=== PATIENT | female | born 1955 | race African-American/Black ===

== ENCOUNTER 2016-03-30 16:27 | Observation (INO) | payer OTHER ==
[2016-03-30] VITALS (8 sets, daily range): BP systolic 113–138; BP diastolic 73–86; PULSE 52–92; RESP 12–18; TEMP 97.7–98.7; O2SAT 96–98
[~2016-03-30] VITALS: Ht 157.5 cm; Wt 85.0 kg
[2016-03-30] MEDS ORDERED: MATZ240T PO (17:27)
[2016-03-30] MEDS ORDERED: DICY10CA12 PO (17:27)
[2016-03-30] MEDS ORDERED: BECL.042%I NASAL (17:27)
[2016-03-30] MEDS ORDERED: MECL25CH CHEW (17:27)
[2016-03-30] MEDS ORDERED: PHEN1TAB84 PO (17:27)
[2016-03-30] MEDS ORDERED: MEDI220T PO (17:27)
[2016-03-30] MEDS ORDERED: ALBU6.7H INH (17:27)
[2016-03-30] MEDS ORDERED: SODIUM CHLORIDE 0.9% FLUSH 5 ML FLUSH IVF PRN ×2 (17:45→19:45)
[2016-03-30] MEDS ORDERED: ASPIRIN 81 MG CHEW TAB PO ONE (17:45)
--- NOTE | 2016-03-30 18:22 | PD ---
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 Patient reported feeling nauseous, diaphoretic, and lightheaded on Tuesday while at work. Today while walking around the house, she felt a new onset of sharp left sided chest pain that radiated towards the shoulder and neck and worsened by lying down. She also reports feeling flushed, burning sensation in her throat , and chest palpitations. Patient denies any history of heart attack, hyperlipidemia, diabetes or stroke. Patient denies any visual disturbances, slurring of speech, or neurological symptoms. Mother had heart attack in her late 40's. Grandmother also with heart attack. History Past Medical History Tetanus Vaccination: < 5 Years Influenza Vaccination: No : 2 Para: 2 Social History Alcohol Use: No Tobacco Use: No Allergies-Medications (Allergen,Severity, Reaction): Coded Allergies: Penicillin (Verified Allergy, Intermediate, ITCHING, 03/30/16) Reported Meds & Prescriptions Reported Meds & Active Scripts Active Reported Proventil Hfa 6.7 GM Inh (Albuterol Sulfate) 90 Mcg/Act Aer 1 Puff INH Q4H PRN Naproxen Sodium 220 Mg Tab 220 Mg PO BID PRN Beconase Aq Nasal (Beclomethasone Dipropionate) 42 Mcg/[place] Susp 1 [place] NASAL BID To each nostril. Matzim [place] (Diltiazem ER 24 HR) 240 Mg Carlos 240 Mg PO DAILY Adipex-P (Phentermine HCl) 37.5 Mg Tab 37.5 Mg PO DAILY Dicyclomine (Dicyclomine HCl) 10 Mg Cap 10 Mg PO TID Meclizine (Meclizine HCl) 25 Mg Chew 25 Mg CHEW DIRECTED PRN Review of Systems Except as stated in HPI: all other systems reviewed are Neg Physical Exam Narrative GENERAL: well nourished, well developed, overweight, appears comfortable SKIN: Warm and dry. HEAD: Atraumatic. Normocephalic. EYES: Pupils equal and round. No scleral icterus. No injection or drainage. ENT: No nasal bleeding or discharge. Mucous membranes pink and moist. NECK: Trachea midline. No JVD. CARDIOVASCULAR: Regular rate and rhythm. RESPIRATORY: No accessory muscle use. Clear to auscultation. Breath sounds equal bilaterally. GASTROINTESTINAL: Abdomen soft, non-tender, nondistended. Hepatic and splenic margins not palpable. MUSCULOSKELETAL: Extremities without clubbing, cyanosis, or edema. No obvious deformities. NEUROLOGICAL: Awake and alert. No obvious cranial nerve deficits. Motor grossly within normal limits. Five out of 5 muscle strength in the arms and legs. Normal speech. PSYCHIATRIC: Appropriate mood and affect; insight and judgment normal. Data Data Last Documented VS Vital Signs Date Time Temp Pulse Resp B/P Pulse Ox O2 Delivery O2 Flow Rate FiO2 03/30/16 18:25 62 18 118/73 98 Room Air 03/30/16 16:29 98.7 Orders Electrocardiogram (03/30/16 ) Complete Blood Count With Diff (03/30/16 17:43) Comprehensive Metabolic Panel (03/30/16 17:43) Magnesium (Mg) (03/30/16 17:43) Prothrombin Time / Inr (Pt) (03/30/16 17:43) Act Partial Throm Time (Ptt) (03/30/16 17:43) Troponin I (03/30/16 17:43) Lipase (03/30/16 17:43) Chest, Single Ap (03/30/16 17:43) Ecg Monitoring (03/30/16 17:43) Bilateral Bp Monitoring (03/30/16 17:43) Iv Access Insert/Monitor (03/30/16 17:43) Oximetry (03/30/16 17:43) Oxygen Administration (03/30/16 17:43) Aspirin Chew (Aspirin Chew) (03/30/16 17:45) Sodium Chloride 0.9% Flush (Ns Flush) (03/30/16 17:45) D-Dimer (03/30/16 18:11) Activity Bed Rest With Brp (03/30/16 19:43) Vital Signs (Adult) Q4H (03/30/16 19:43) Cardiac Rhythm .As Directed (03/30/16 19:43) ^ Notify Dr: Other .PRN (03/30/16 19:43) ^ Notify . Parameters (03/30/16 19:43) Resp Oxygen Nasal Cannula (03/30/16 ) Ckmb (Isoenzyme) Profile (03/30/16 19:43) Ckmb (Isoenzyme) Profile (03/30/16 22:43) Troponin I (03/30/16 19:43) Troponin I (03/30/16 22:43) Electrocardiogram (03/30/16 19:43) Electrocardiogram (03/30/16 22:43) ^ Obtain (03/30/16 19:43) Sodium Chloride 0.9% Flush (Ns Flush) (03/30/16 19:45) Sodium Chloride 0.9% Flush (Ns Flush) (03/30/16 21:00) Admit Order (Ed Use Only) (03/30/16 ) Labs Laboratory Tests Test 03/30/16 18:00 White Blood Count 7.3 TH/MM3 Red Blood Count 4.37 MIL/MM3 Hemoglobin 14.5 GM/DL Hematocrit 43.5 % Mean Corpuscular Volume 99.5 FL Mean Corpuscular Hemoglobin 33.1 PG Mean Corpuscular Hemoglobin 33.2 % Concent Red Cell Distribution Width 13.1 % Platelet Count 248 TH/MM3 Mean Platelet Volume 9.3 FL Neutrophils (%) (Auto) 63.8 % Lymphocytes (%) (Auto) 28.1 % Monocytes (%) (Auto) 6.0 % Eosinophils (%) (Auto) 1.4 % Basophils (%) (Auto) 0.7 % Neutrophils # (Auto) 4.7 TH/MM3 Lymphocytes # (Auto) 2.1 TH/MM3 Monocytes # (Auto) 0.4 TH/MM3 Eosinophils # (Auto) 0.1 TH/MM3 Basophils # (Auto) 0.1 TH/MM3 CBC Comment DIFF FINAL Differential Comment Prothrombin Time 10.6 SEC Prothromb Time International 1.0 RATIO Ratio Activated Partial 27.7 SEC Thromboplast Time D-Dimer Quantitative (PE/DVT) LESS THAN 0.19 MG/L FEU Sodium Level 138 MEQ/L Potassium Level 4.3 MEQ/L Chloride Level 105 MEQ/L Carbon Dioxide Level 23.8 MEQ/L Anion Gap 9 MEQ/L Blood Urea Nitrogen 24 MG/DL Creatinine 1.29 MG/DL Estimat Glomerular Filtration 51 ML/MIN Rate Random Glucose 79 MG/DL Calcium Level 9.2 MG/DL Magnesium Level 2.1 MG/DL Total Bilirubin 0.4 MG/DL Aspartate Amino Transf 30 U/L (AST/SGOT) Alanine Aminotransferase 24 U/L (ALT/SGPT) Alkaline Phosphatase 69 U/L Troponin I LESS THAN 0.02 NG/ML Total Protein 8.0 GM/DL Albumin 4.1 GM/DL Lipase 76 U/L MDM Medical Decision Making Medical Screen Exam Complete: Yes Emergency Medical Condition: Yes Differential Diagnosis Myocardial Infarction Pulmonary Embolism Stable Angina GERD although unlikely due to symptoms association with physical activity Narrative Course Patient was roomed in emergency department, she appears well in no apparent distress. She does have some risk factors for ACS including high blood pressure , family history. Heart skull is a total of 3. She does however have fairly good story for ACS which may increase her heart scored 4. Troponin negative EKG negative d-dimer negative. Discussed patient stress testing is indicated now or in the near future. She opts for chest pain center at this time. Diagnosis Primary Impression: Chest pain Qualified Code: R07.9 - Chest pain, unspecified type Admitting Information Admitting Physician Requests: Observation Condition: Stable Josiah Kahn MD Mar 30, 2016 18:22
[2016-03-30 18:36] LABS: AUTOMATED NEUTROPHIL # 4.7 TH/MM3 (1.8-7.7); BASOPHIL # 0.1 TH/MM3 (0-0.2); BASOPHIL % 0.7 % (0.0-2.0); EOSINOPHIL # 0.1 TH/MM3 (0-0.4); EOSINOPHIL % 1.4 % (0.0-4.0); HEMATOCRIT 43.5 % (35.0-46.0); HEMO FLAGS DIFF FINAL; LYMPH % 28.1 % (9.0-44.0); LYMPHOCYTE # 2.1 TH/MM3 (1.0-4.8); MEAN CELL VOLUME 99.5 FL (80.0-100.0); MEAN CORPUSCULAR HEMOGLOBIN 33.1 PG (27.0-34.0); MEAN CORPUSCULAR HGB CONC 33.2 % (32.0-36.0); NEUT % 63.8 % (16.0-70.0); PLATELET COUNT 248 TH/MM3 (150-450); RED BLOOD COUNT 4.37 MIL/MM3 (4.00-5.30); RED CELL DISTRIBUTION WIDTH 13.1 % (11.6-17.2); WHITE BLOOD COUNT 7.3 TH/MM3 (4.0-11.0)
--- NOTE | 2016-03-30 18:41 | RADRPT ---
EXAM DATE/TIME: 03/30/2016 18:05 [facility] COMPARISON: No previous studies available for comparison. INDICATIONS : Chest pain. MEDICAL HISTORY : Hypertension. Asthma SURGICAL HISTORY : Hysterectomy. Tubal ligation. Tumor removal ENCOUNTER: Initial ACUITY: 1 day PAIN SCORE: 8/10 LOCATION: Bilateral chest FINDINGS: A single view of the chest demonstrates the lungs to be symmetrically aerated without evidence of mas s, infiltrate or effusion. The cardiomediastinal contours are unremarkable. Osseous structures are intact. CONCLUSION: No acute disease. Noe Rae MD FACR on March 30, 2016 at 18:39 Board Certified Radiologist. This report was verified electronically.
[2016-03-30 18:57] LABS: APTT (PATIENT) 27.7 SEC (24.3-30.1); PROTHROMBIN TIME - PATIENT 10.6 SEC (9.8-11.6)
[2016-03-30 19:11] LABS: ANION GAP 9 MEQ/L (5-15)
[2016-03-30 19:14] LABS: ALKALINE PHOSPHATASE 69 U/L (45-117); ALT (GPT) 24 U/L (10-53); AST (GOT) 30 U/L (15-37); BICARBONATE 23.8 MEQ/L (21.0-32.0); BLOOD UREA NITROGEN 24 MG/DL (7-18); CHLORIDE 105 MEQ/L (98-107); GLOMERULAR FILTRATION RATE 51 ML/MIN (>89); MAGNESIUM 2.1 MG/DL (1.5-2.5); SODIUM (NA) 138 MEQ/L (136-145); TOTAL BILIRUBIN ADULT 0.4 MG/DL (0.2-1.0)
[2016-03-30 19:15] LABS: POTASSIUM 4.3 MEQ/L (3.5-5.1)
[2016-03-30] MEDS: SODIUM CHLORIDE 0.9% FLUSH 5 ML FLUSH IVF SCH (21:12)
[2016-03-30 21:54] LABS: CREATINE KINASE 304 U/L (26-192)
[2016-03-30 22:08] LABS: CKMB 3.7 NG/ML (0.5-3.6)
[2016-03-31 00:09] VITALS: BP 110/66; PULSE 59; RESP 18; TEMP 97.6; O2SAT 99
[2016-03-31 00:31] VITALS: PULSE 54
[2016-03-31 00:44] LABS: CREATINE KINASE 273 U/L (26-192)
[2016-03-31 00:57] LABS: CKMB 3.2 NG/ML (0.5-3.6)
[2016-03-31 04:22] VITALS: BP 137/77; PULSE 64; RESP 18; O2SAT 100
[2016-03-31 04:30] VITALS: PULSE 48
[2016-03-31 07:53] VITALS: BP 122/65; PULSE 55; RESP 20; TEMP 98.4; O2SAT 100
[2016-03-31 08:14] VITALS: PULSE 76
[2016-03-31] MEDS: SODIUM CHLORIDE 0.9% FLUSH 5 ML FLUSH IVF SCH (08:53)
--- NOTE | 2016-03-31 09:15 | MH ---
cc: ALANNA MCCORMACK MD DATE OF ADMISSION: 03/30/2016 DATE OF : 1955 CHIEF COMPLAINT Chest pain. HISTORY OF PRESENT ILLNESS This is a 60-year-old female who presented to the ED complaining of developing a sharp and pressure discomfort in the chest yesterday. It lasted for several hours. She was a little nauseous and diaphoretic. She has really not had these symptoms before. Denies history of CAD. She does have a family history of CAD. The patient denies any recent illness. Denies any recent travel. She found nothing to worsen or improve her symptoms when she had them yesterday. PAST MEDICAL HISTORY 1. Appendiceal carcinoma with metastatic disease to the ovaries status post surgery and chemotherapy. She has been in remission. 2. Asthma. 3. Vertigo. 4. 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 5. Hypertension. Denies diabetes, hyperlipidemia and known CAD. FAMILY HISTORY Positive for CAD. SOCIAL HISTORY She is non-smoker. Denies alcohol or illicit drugs. PAST SURGICAL HISTORY Surgery related to her appendiceal cancer and ovarian cancer. ALLERGIES PENICILLIN. MEDICATIONS 1. Proventil. 2. Naproxen. 3. Diltiazem. 4. Phentermine. 5. Meclizine. 6. Dicyclomine. 7. Nasal spray. REVIEW OF SYSTEMS GENERAL: Denies fevers or chills. Denies recent illnesses. HEENT: Denies headache, earache, sore throat, difficulty swallowing. CARDIOVASCULAR: Describes the discomfort as mentioned above. There was diaphoresis. Denies sensation of heart beating rapidly or irregularly. Denies syncope. RESPIRATORY: She had a little shortness of breath. No inspirational chest discomfort. Denies coughing, wheezing or hemoptysis. GASTROINTESTINAL: There was some nausea but denies emesis. Denies abdominal pain. Denies diarrhea, constipation or blood in the stool. MUSCULOSKELETAL: Denies joint pain or edema. Denies calf pain or edema. NEUROVASCULAR: Denies headache or dizziness. ENDOCRINE: Denies polyuria or polydipsia. HEMATOLOGIC: Denies easy bruising. SKIN: Denies rash or itching. PHYSICAL EXAMINATION VITAL SIGNS: The vital signs in the emergency department initially included a blood pressure of 132/86, heart rate 92, respirations 12, pulse oximetry 96% on room air, and she was afebrile. The most recent vital signs include a blood pressure of 122/65, heart rate 55, respirations 20, pulse oximetry 100% on room air and she is afebrile. GENERAL: The patient is seen in the examination room in no apparent distress. She is pleasant. She speaks in clear and complete sentences. HEENT: Atraumatic, normocephalic. NECK: Supple without lymphadenopathy. Trachea is midline. No JVD or carotid bruits. CARDIOVASCULAR: Regular rate and rhythm without murmur, gallop or rub. PULMONARY: Lungs are clear to auscultation bilaterally. No wheezing, rales or rhonchi. No use of accessory muscles. ABDOMEN: Nontender. Bowel sounds are normal. EXTREMITIES: The patient is moving upper and lower extremities freely. No joint tenderness or edema. No calf tenderness or edema. No Homans sign. Strong pulses in the upper and lower extremities. NEUROLOGIC: The patient is alert and oriented. Cranial nerves II through XII are grossly intact. No focal deficits. Speech is clear. SKIN: No rashes. Turgor is normal. LABORATORY DATA CBC is unremarkable. Coagulation studies are unremarkable including a D-dimer at less than 0.19. Complete metabolic panel has a creatinine mildly elevated at 1.29, BUN mildly elevated at 24, GFR decreased to 51. Serial cardiac enzymes have troponins normal x3. Lipase is normal at 76. IMAGING DATA A single-view chest x-ray read by the radiologist as no acute disease. EKG DATA EKGs have sinus bradycardia, without significant ST segment depression or elevation. ASSESSMENT AND PLAN 1. Chest pain: The patient's discomfort is atypical. She had serial cardiac enzymes and EKGs for ruling out purposes. She has been seen by Dr. Mccormack of cardiology in the chest pain center. She will undergo a Jayson protocol ETT and if that is unremarkable she will be discharged home with instructions to follow-up with a local physician. 2. Asthma: The patient has a history of asthma but has not been bothering her recently. Continue current medication as needed. 3. Hypertension: Continue current medication. 4. The patient is stable at this time. She is agreeable to this plan. Dictated by: Richard Lowe PA-C Alanna Mccormack M.D. BAB/BT /8:44 AM /9:12 AM
--- NOTE | 2016-03-31 09:37 | HHI.DCPOC ---
Discharge Care Plan Diagnosis: (1) Chest pain, atypical (2) Hypertension Goals to Promote Your Health * To prevent worsening of your condition and complications * To maintain your health at the optimal level Directions to Meet Your Goals Take your medications as prescribed Follow your dietary instruction Follow activity as directed Keep your appointments as scheduled Take your immunizations and boosters as scheduled If your symptoms worsen call your PCP, if no PCP go to Urgent Care Center or Emergency Room Smoking is Dangerous to Your Health. Avoid second hand smoke Call the 24-hour hour crisis hotline for domestic abuse at Richard Lowe Mar 31, 2016 09:36
--- NOTE | 2016-03-31 13:25 | TR ---
Date Performed: 03/31/2016 Time Performed: 09:07:15 DOCTOR: Nena Salazar DRUG LIST: CLINICAL HISTORY: CHEST PAIN REASON FOR TEST: Chest pain REASON FOR ENDING: OBSERVATION: CONCLUSION: SHANNON PROTOCOL. NO CP. TEST STOPPED AFTER EXCEEDING GOAL HR SECONDARY TO SOB AND LEG FATIGUE.Maximum TZ=009 % Max HR Achieved=91.0% Maximum SU=168/70 COMMENTS:
--- NOTE | 2016-03-31 13:27 | EKG ---
Date Performed: 03/30/2016 Time Performed: 21:45:09 PTAGE: 60 years EKG: SINUS BRADYCARDIA LEFT VENTRICULAR HYPERTROPHY AND ST-T CHANGE ABNORMAL ECG Since PREVIOUS TRACING , no significant change noted PREVIOUS TRACIN03/30/2016 21.44 DOCTOR: Nena Salazar Interpretating Date/Time 03/31/2016 13:26:43
--- NOTE | 2016-03-31 13:27 | EKG ---
Date Performed: 03/30/2016 Time Performed: 21:44:47 PTAGE: 60 years EKG: SINUS BRADYCARDIA LEFT VENTRICULAR HYPERTROPHY AND ST-T CHANGE ABNORMAL ECG NO PREVIOUS TRACING DOCTOR: Nena Salazar Interpretating Date/Time 03/31/2016 13:26:51
--- NOTE | 2016-03-31 13:27 | EKG ---
Date Performed: 03/31/2016 Time Performed: 00:14:32 PTAGE: 60 years EKG: SINUS BRADYCARDIA NONSPECIFIC T-WAVE ABNORMALITY BORDERLINE ECG Since PREVIOUS TRACING , no significant change noted PREVIOUS TRACIN03/30/2016 21.45 DOCTOR: Nena Salazar Interpretating Date/Time 03/31/2016 13:26:20
== END 2016-03-31 11:11 | disposition home or self-care (01) ==
LOC: NEPA 16:27 → NEDA 19:46 → NEPFCDU 20:57
PROVIDERS: ADMIT Internal Medicine Interventional Cardiology; ATTEND Internal Medicine Interventional Cardiology
DX: R07.9 Chest pain, unspecified (principal); J45.909 Unspecified asthma, uncomplicated; I10 Essential (primary) hypertension; R11.0 Nausea; R61 Generalized hyperhidrosis; R42 Dizziness and giddiness; R00.2 Palpitations; Z79.899 Other long term (current) drug therapy; Z85.038 Personal history of other malignant neoplasm of large intestine; G62.9 Polyneuropathy, unspecified; R00.1 Bradycardia, unspecified
CPT/HCPCS: 71010; 80053; 82550; 82552; 83690; 83735; 84484; 85025; 85379; 85610; 85730; 93005; 93017; 99285; G0378